=== PATIENT | male | born 1985 | race African-American/Black ===

== ENCOUNTER → 2017-09-09 | Outpatient (CLI) | payer OTHER ==
--- NOTE | 2017-09-09 21:08 | MRI ---
HISTORY: Multiple sclerosis. Study: MR brain without contrast. Comparison: None available. Technique: Multiplanar multi-sequence MRI of the brain was obtained without contrast utilizing a [facility] protocol. Findings: Optimal evaluation is limited secondary to artifact in the supraorbital region on the right and lack of intravenous contrast. There are scattered and confluent areas of increased T2/FLAIR sign al within the periventricular and deep white matter regions bilaterally with the periventricular sign al alteration appearing to radiate perpendicular to the lateral ventricles. There is no abnormal rest ricted diffusion. The evaluation of the brain parenchyma demonstrates no abnormal signal characteris tics to suggest intraparenchymal mass or hemorrhage. No extra-axial fluid collections are observed. The ventricular system is symmetric and nondilated. The CP angle is normal in its appearance witho ut brainstem mass or evidence for acoustic neuroma. The flow voids on both T1 and T2 weighted imagin g are unremarkable. IMPRESSION: No acute intracranial abnormality. Periventricular white matter changes which would be compatible with reported history of multiple scle rosis. Optimal evaluation for active plaques is limited given the lack of intravenous contrast. Nils rison with prior imaging if available is suggested to evaluate for interval change. Artifact in the supraorbital region on the right limits optimal evaluation of the subjacent brain par enchyma. Reported By:
--- NOTE | 2017-09-09 21:17 | MRI ---
HISTORY: Multiple sclerosis. Study: MRI of the cervical spine without contrast. Comparison: None available. Technique: Multiplanar multisequence MRI of the cervical spine was obtained without contrast utilizin g a standard departmental protocol. By report, the patient was unable to complete the entire study se condary to severe urinary urgency resulting in the patient urinating on himself. Specifically, the ax ial T1 images of the cervical spine are incomplete. Findings: Alignment of the cervical spine is maintained. No abnormal signal characteristics of the bone marrow can be identified. No evidence for fracture or significant bone marrow edema can be seen . The surrounding soft tissues are unremarkable. The central canal appears widely patent and normal signal characteristics of the spinal cord are noted. There is mild diffuse desiccation of the interv ertebral discs without significant disc space narrowing are posterior disc osteophyte complex formati on. There is no significant neural foraminal narrowing. IMPRESSION: Limited and incomplete evaluation secondary to the patient being unable to complete the exam as above . No abnormal signal to suggest a demyelinating process of the cervical spinal cord. Optimal evaluation is limited given the lack of intravenous contrast. Mild diffuse intervertebral disc desiccation without significant degenerative disc disease or spinal canal/neural foraminal narrowing. Reported By:
== END ==
LOC: RAD 14:54
DX: G35 Multiple sclerosis (principal)
CPT/HCPCS: 70551; 72141

== ENCOUNTER → 2017-09-10 | Outpatient (CLI) | payer OTHER ==
--- NOTE | 2017-09-10 14:30 | CT ---
STUDY: CT OF THE CERVICAL SPINE HISTORY: Multiple sclerosis. Follow-up exam for MS. Technique: Multiple axial images of the cervical spine were obtained from the skull base to the thora cic inlet without administration of IV contrast. Sagittal and coronal reformats were performed and r eviewed. Automated exposure control (AEC) was utilized to adjust the MA and/or kV. Comparison: MRI cervical spine from September 09, 2017. Findings: Vertebral body heights and alignment are within normal limits. There is no evidence of acute fracture or subluxation. There appears to be a defect in the pedicle and superior articulating facet of C6 on the left. There is a gap in the spinous process of C6. Alignment is within normal limits bilaterall y. The spinous processes are intact. There is no significant prevertebral soft tissue swelling. The l ateral masses of C1, and the C1/C2 relationship are normal. The odontoid process is intact. The occip ital condyles and their relationship with C1 are normal. IMPRESSION: 1. No evidence of acute cervical spine fracture or subluxation. 2. Defect in the pedicle and superior articulating facet of C6 on the left, and spinous process of C6 . This appears congenital or could be chronic and acquired. Reported By:
== END ==
LOC: RAD 12:50
DX: G35 Multiple sclerosis (principal)
CPT/HCPCS: 72125